=== PATIENT | female | born 1945 | race Caucasian/White ===

== ENCOUNTER → 2016-12-17 | Outpatient (CLI) | payer BC ==
[~2016-12-17] MED LIST: AMOX500C3 PO; ANAS1TAB6 PO; CITRACAL PO; DICL-201 PO; GABA-1218 PO; HYDR1TAB2 PO; METO25TA56 PO; SPIR25TA PO; TRAM-453 PO
--- NOTE | 2016-12-17 14:26 | MAMMOGRAPHY REPORT ---
BILATERAL DIGITAL SCREENING MAMMOGRAM WITH CAD: 12/17/2016 CLINICAL HISTORY: Routine screening. Patient has no complaints. TECHNIQUE: Bilateral CC and MLO views were obtained. Current study was also evaluated with a Comput er Aided Detection (CAD) system. COMPARISON: Comparison is made to exams dated: 12/12/2015 mammogram, 12/07/2014 mammogram, 05/17/2014 m ammogram, 05/17/2014 stereotactic biopsy, 05/04/2014 mammogram, and 10/26/2013 mammogram - [facility]. BREAST COMPOSITION: There are scattered areas of fibroglandular density in both breasts. FINDINGS: There is a possible cluster of linear microcalcifications in the 5:00 to 6:00 posterior r ight breast, for which additional spot magnification views are recommended. There are stable post biopsy changes in the middle one third of the right breast, with 2 metallic bi opsy markers in place. Other scattered and grouped microcalcifications bilaterally are stable darren red to prior exams. No focal area of architectural distortion or suspicious mass is identified. IMPRESSION: ACR BI-RADS CATEGORY 0: INCOMPLETE EVALUATION: NEED ADDITIONAL IMAGING EVALUATION The possible cluster of linear microcalcifications in the right breast needs additional evaluation. The patient will be called to schedule an appointment. Approximately 10% of breast cancers are not detected with mammography. A negative mammographic repor t should not delay biopsy if a clinically suggestive mass is present. Dana Tee M.D. ay/:12/17/2016 13:47:38 Deposition Reporter: Eun Barba M, [facility] letter sent: Addl Imaging 0 BI-RADS Code: ACR BI-RADS Category 0: Incomplete Evaluation: Need Additional Imaging Evaluation
== END | disposition home or self-care (01) ==
LOC: C.MAMM 09:34
PROVIDERS: ATTEND Family Medicine
DX: Z12.31 Encounter for screening mammogram for malignant neoplasm of breast (principal)

== ENCOUNTER → 2016-12-26 | Outpatient (CLI) | payer BC ==
--- NOTE | 2016-12-26 14:54 | MAMMOGRAPHY REPORT ---
UNILATERAL RIGHT DIGITAL DIAGNOSTIC MAMMOGRAM: 12/26/2016 CLINICAL HISTORY: Callback from screening mammogram for right breast calcifications. TECHNIQUE: Spot magnification right cc and ML views were obtained. COMPARISON: Comparison is made to exams dated: 12/17/2016 mammogram, 12/12/2015 mammogram, 12/07/2014 ma mmogram, 05/17/2014 mammogram, 05/17/2014 stereotactic biopsy, and 05/04/2014 mammogram - [facility]. BREAST COMPOSITION: There are scattered areas of fibroglandular density in the right breast. FINDINGS: Spot magnification views of the right breast demonstrate grouped calcifications which are in a linear distribution in the lower inner quadrant, measuring approximately 3 cm in extent. Give n that the calcifications are new and given the linear distribution, the calcifications are suspicio us for DCIS and stereotactic biopsy is recommended for further evaluation. 2 biopsy marker clips are again noted within the right breast from prior benign stereotactic biopsie s. Other grouped grouped calcifications seen within the right breast more medially are stable datin g back to at least the 2012 and 2011 exams. IMPRESSION: ACR BI-RADS CATEGORY 4: SUSPICIOUS New grouped calcifications in a linear distribution in the right lower inner quadrant. The calcific ations are suspicious and stereotactic biopsy is recommended for further evaluation. A phone call was made to the physician's office to confirm faxed results were received. The patient has been verbally notified of the results. The patient tentatively scheduled the biopsy before gold ving the department. Approximately 10% of breast cancers are not detected with mammography. A negative mammographic repor t should not delay biopsy if a clinically suggestive mass is present. Serena Guzman M.D. ah/:12/26/2016 08:44:57 Systems Protection Technician: Patti Arvizu, [facility] letter sent: Abnormal 4/5 BI-RADS Code: ACR BI-RADS Category 4: Suspicious
== END ==
LOC: C.MAMM 08:05
PROVIDERS: ATTEND Family Medicine
DX: R92.0 Mammographic microcalcification found on diagnostic imaging of breast (principal)

== ENCOUNTER → 2017-01-03 | Outpatient (CLI) | payer BC ==
--- NOTE | 2017-01-03 13:18 | Discharge Instructions ---
Discharge Instructions Procedure Procedure Date: January 03, 2017. Reason for visit: Right Calcifications. Discharge Discharge Date: January 03, 2017. Discharge Diagnosis: status post breast biopsy Instructions Activity Recommendations: Additional Limitations (see below) Return to School/Work: no limitations Recommended Home Diet: No Limitations Provider Instructions: ACTIVITY RECOMMENDATIONS: * No lifting, pushing, pulling or exercising the affected side for three days. RETURN TO SCHOOL/WORK: * You may return to work/school after the procedure, but do not perform any strenuous activities for 24 to 48 hours. MEDICATIONS: * Tylenol (two 325 mg) every four to six hours if needed for mild pain (if not allergic to Tylenol). DIET: * Resume previous diet. SPECIAL CARE INSTRUCTIONS: * Keep biopsy site dry for 24 hours. May shower after 24 hours, but do not soak (bathe) incision. * May remove Tegaderm (plastic patch) tomorrow AFTER showering. * Leave the steri-strips on for one week. Allow the steri-strips to fall off by themselves. If not off after one week, you may remove them. You may place a Bandaid crosswise over the strips, if desired. * Apply ice 10 minutes on and 10 minutes off as needed. * Wear a bra at bedtime to sleep more comfortably for 2-3 days. * Your referring physician should have the results after approximately 5 to 7 business days. * Call for unusual bleeding, fever, drainage, etc or if you have any questions call during normal business hours or after hours call Dr Guzman, [phone]. FOLLOW UP VISIT: Follow-up with Referring Physician as scheduled. Allergies Coded Allergies: Sulfa Drugs (Verified Allergy, Severe, COLD CHILLS PASS OUT VOMITING, ) Sulfamethoxazole (Verified Allergy, Severe, _, 09/16/09) Trimethoprim (Verified Allergy, Severe, _, 09/16/09) [place] Recommendations: Call your doctor if: * Temperature above 101 degrees * Pain not relieved by pain medicine ordered * There is increased drainage or redness from any incision * You have any unanswered questions or concerns. Your Doctors Instructions noted above were prepared by provider Serena Guzman. Patient Signature Section: Patient Instructions Signature Page Cammy Castanon Patient (or Guardian) Signature/Date: I have read and understand the instructions given to me by my caregivers. Caregiver/RN/Doctor Signature/Date: The above-named patient and/or guardian has received patient instructions on this date. + Original Patient Signature Page (only) stays with chart. Please make copy for patient.
--- NOTE | 2017-01-03 14:04 | MAMMOGRAPHY REPORT ---
THIS REPORT HAS BEEN AMENDED. AMENDMENT: 01/09/2017 Serena Guzman M.D. The pathology from right breast stereotactic biopsy was reviewed on 01/09/2017. The pathology shows D CIS grade 3, which is concordant with the imaging findings. Recommend surgical consultation for furt her evaluation. Additionally, there is a small 8 mm cluster of punctate calcifications seen medial a nd anterior to the biopsied calcifications which is stable on spot magnification views dating back to at least the 2012 exam and is therefore likely benign; however, given the new diagnosis of DCIS, con sideration could be made for excising this cluster as well at the time of surgery. STEREOTACTIC GUIDED BIOPSY RIGHT BREAST: 01/03/2017 CLINICAL HISTORY: Indeterminate calcifications in the right lower inner quadrant. PATIENT CONSENT: The procedure, risks, benefits, and alternatives of stereotactic biopsy with clip pl acement were discussed with the patient, and verbal and written consent was obtained. A timeout was performed immediately prior to the procedure. PROCEDURE DESCRIPTION: With stereotactic guidance, aseptic technique, and lidocaine as a local anesth etic (1% lidocaine to anesthetize the skin and 1% lidocaine with epinephrine to anesthetize the deepe r tissues), the area of concern in the right lower inner quadrant was sampled multiple times with a 9 -gauge vacuum-assisted biopsy needle (Drybar). The path of approach was caudocranial. The spec imen radiograph demonstrates calcifications to be present in the samples. A metallic marker clip was placed at the biopsy site. This was confirmed on postprocedure mammograms. Direct pressure was naveen lied at the biopsy site and hemostasis was readily achieved. The patient tolerated the procedure wit hout complication. She was given wound care instructions. COMPARISON: Comparison is made to exams dated: 12/26/2016 mammogram, 12/17/2016 mammogram, 12/12/2015 zuly mogram, 12/07/2014 mammogram, 10/26/2013 mammogram, and 10/02/2012 mammogram - [facility]. IMPRESSION: STEREOTACTIC GUIDED BIOPSY Stereotactic guided biopsy of indeterminate calcifications in the right lower inner quadrant posterio rly, with clip placement. The patient will receive pathology results from her referring provider. Serena Guzman M.D. ah/:01/03/2017 13:21:02 Attending Technologist: Marge REDDY(Eun)(M), [facility] Supervisor [employer]: Patti Arvizu, [facility]
--- NOTE | 2017-01-04 12:53 | MAMMOGRAPHY REPORT ---
UNILATERAL RIGHT DIGITAL DIAGNOSTIC MAMMOGRAM: 01/03/2017 CLINICAL HISTORY: Status post right breast stereotactic biopsy. TECHNIQUE: Right CC and ML and MLO views were obtained. COMPARISON: Comparison is made to exams dated: 12/17/2016 mammogram, 12/12/2015 mammogram, 12/07/2014 ma mmogram, 05/17/2014 mammogram, 10/26/2013 mammogram, and 04/27/2013 mammogram - [facility]. BREAST COMPOSITION: There are scattered areas of fibroglandular density in the right breast. FINDINGS: A preprocedural right cc view was obtained for biopsy planning purposes. Postprocedural right CC and ML and MLO views were obtained, which shows a new biopsy marker clip at the site of the biopsied calcifications in the right lower inner quadrant posteriorly. No significant postbiopsy h ematoma is seen. IMPRESSION: POST PROCEDURE IMAGING FOR MARKER PLACEMENT New biopsy marker clip status post right breast stereotactic biopsy. Pathology results are pending. Approximately 10% of breast cancers are not detected with mammography. A negative mammographic repor t should not delay biopsy if a clinically suggestive mass is present. Serena Guzman M.D. /:01/03/2017 13:34:26 Attending Technologist: Marge MOHAN)(Anne), [facility] Sample Color Maker: Patti Arvizu, [facility] BI-RADS Code: Post Procedure Imaging For Marker Placement
== END | disposition home or self-care (01) ==
LOC: C.MAMM 12:37
PROVIDERS: ATTEND Family Medicine
DX: D05.11 Intraductal carcinoma in situ of right breast (principal)

== ENCOUNTER → 2017-04-08 | Outpatient (CLI) | payer BC ==
[~2017-04-08] MED LIST changes: -CITRACAL PO; -DICL-201 PO; -GABA-1218 PO; -HYDR1TAB2 PO; -TRAM-453 PO
== END | disposition home or self-care (01) ==
LOC: C.RDSM 08:45
PROVIDERS: ATTEND Physical Medicine & Rehabilitation Sports Medicine
DX: M25.561 Pain in right knee (principal); M17.9 Osteoarthritis of knee, unspecified

== ENCOUNTER → 2017-05-14 | Outpatient (CLI) | payer BC ==
[2017-05-14 14:57] VITALS: BP 115/74; PULSE 71; TEMP 36.6; O2SAT 95
--- NOTE | 2017-05-14 15:40 | Radiation Oncology Follow-Up ---
Radiation Oncology Follow-Up Date of Visit May 14, 2017. Reason For Visit One-month follow-up and cancer survivorship care plan Radiation Completion Date finished 04-05-2017 Diagnosis (1) Intraductal cancer of right breast Status: Resolved Stage: 0 Permanent Comment: Abnormal right breast mammogram Status post stereotactic biopsy 01/03/2017 revealing DCIS Grade 3 Estrogen receptor positive and progesterone receptor positive Status post needle localization partial mastectomy and sentinel lymph node biopsy 01/23/2017 Stage pTis pN0 Status post completion of radiation therapy 04/05/2017. She received 5130 cGy utilizing hypo-fractionation. Last Edited By: Kimberlee Kent on Apr 16, 2017 16:26 History of Present Illness Ms. Castanon is a 71-year-old female with a recent history of negative biopsies of the right breast (2012, 2013) who recently presented with a abnormal mammogram on 12/17/2016 which revealed a possible cluster of linear microcalcifications in the right breast. The patient was brought back for a unilateral right diagnostic mammogram on 12/26/2016 which revealed a new group of calcifications in a linear distribution in the right lower inner quadrant that are suspicious for malignancy. 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 The patient was referred to Dr. Sujatha Pagan who discussed treatment options including mastectomy and lumpectomy. The patient elected to undergo a right breast lumpectomy and sentinel lymph node biopsy on 01/23/2017. Pathology revealed ductal carcinoma in situ that measured at least 5 mm in the greatest dimension with a solid/comedo pattern and with comedonecrosis present as well. The margins were negative in all directions. 2 sentinel lymph nodes were excised and both were negative. The patient was seen by Dr. Krysten Zelaya from medical oncology who is recommended consideration of anti-hormonal therapy. We are now seeing the patient in consultation discussed the role of adjuvant radiation therapy. She underwent a CT simulation was found to be a candidate for hypo- fractionation. This was completed 04/05/2017. She received 5130 cGy. Interim History She's been doing well over the past month. She did have some areas of skin that had blisters. These resolved without difficulty. She now has some dryness to the skin and mild peeling. She denies any pain in the breast. She is noted no masses. She has been seen in follow-up by Dr. Pagan. She has been scheduled for mammography. She has started anastrozole. She denies side effects. Allergies Coded Allergies: Sulfa Drugs (Verified Allergy, Severe, COLD CHILLS PASS OUT VOMITING, ) Sulfamethoxazole (Verified Allergy, Severe, _, 09/16/09) Trimethoprim (Verified Allergy, Severe, _, 09/16/09) Home Medications Scheduled Amoxicillin (Amoxil), 500 MG PO DIRECTED Anastrozole (Anastrozole), 1 TAB PO DAILY Metoprolol Tartrate (Lopressor) (Lopressor), 1 TAB PO BID Spironolactone (Aldactone), 25 MG PO DAILY Review of Systems Gastrointestinal: Symptoms: WNL Oral: Symptoms: No Problems Respiratory: Symptoms: WNL Urinary: Symptoms: Nocturia Comments: nocturia times 0-2 Skin: Symptoms: No Problems Breast: Right Upper Arm Measurement: 30.4 Right Mid Arm Measurement: 26.0 Right Wrist Measurement: 16.6 Left Upper Arm Measurement: 29.8 Left Mid Arm Measurement: 25.5 Left Wrist Measurement: 17.0 Arm Dominence: Right Patient Cosmetic Evaluation: Good Staff Cosmetic Evalaluation: Good Additional Notes: She completed a distress management report and answered "no" to all questions. Physical Exam Vital Signs Date Time Temp Pulse Resp B/P (MAP) Pulse Ox O2 Delivery O2 Flow Rate FiO2 05/14/17 14:57 36.6 71 16 115/74 95 Pain: Side: Bilateral Patient Pain Scale: 0 - 10 Initial Pain Intensity: 0.0 Fatigue: None General Appearance: no apparent distress Eyes: normal inspection, EOMI ENT: normal ENT inspection, hearing grossly normal Neck: no adenopathy, thyroid normal Respiratory/Chest: lungs clear, no respiratory distress, no accessory muscle use Breast: Breast examination reveals well-healed incisions of the right breast. There are no masses or tenderness no axillary adenopathy. There is edema in the lower portion of the breast. There is dryness of the skin and resolving hyperpigmentation. Using the Lyle score cosmesis she has a good outcome. The left breast showed no masses or tenderness no axillary adenopathy. Cardiovascular: regular rate, rhythm, no gallop, no murmur Abdomen: non tender Extremities: no pedal edema Neurologic/Psychiatric: no motor/sensory deficits, alert, normal mood/affect Skin: warm/dry Assessment & Plan Plan: Continue regular follow-up with Dr. Zelaya, Dr. Pagan, and her primary care physician. She is scheduled for follow-up mammography. She continues on anastrozole. She was seen and examined by Dr. Jean. She'll continue over-the- counter moisturizers for the dryness of the skin. She was reassured the hyperpigmentation will improve. She was given instructions on light massage for the edema of the breast. Today we completed a cancer survivorship care plan. A copy of the document was given to the patient. She was given a survivorship booklet. We asked her to return to our office in 6 months. She may call if she has any questions or concerns in the interim. Assessment & Plan (Attending) ADDENDUM: I agree with note created by Kimberlee Kent PA-C. I reviewed the patient's chart and information with her. I have examined and evaluated the patient. I reviewed relevant clinical information and answered the patient's and /or family's questions. CURRENCY COUNTER Total Time In Follow-Up I spent 20 minutes speaking to the patient and performing examination. I spent 20 minutes reviewing information, preparing the survivorship document, and completing this note. Total Time (Attending) In Follow-Up I spent 15 minutes examining and counseling the patient. CURRENCY COUNTER Copy To Flavia Siegel M.D.; Sujatha Pagan MD; Krysten Zelaya MD
== END ==
LOC: C.ONC 14:51
PROVIDERS: ATTEND Physician Assistant Medical
DX: Z08 Encounter for follow-up examination after completed treatment for malignant neoplasm (principal); Z92.3 Personal history of irradiation; Z85.3 Personal history of malignant neoplasm of breast

== ENCOUNTER → 2017-07-15 | Outpatient (CLI) | payer BC ==
--- NOTE | 2017-07-15 15:19 | MAMMOGRAPHY REPORT ---
UNILATERAL RIGHT DIGITAL DIAGNOSTIC MAMMOGRAM TOMOSYNTHESIS WITH CAD: 07/15/2017 CLINICAL HISTORY: 71-year-old woman with a personal history of right breast DCIS status post lumpecto my and radiation therapy. Patient has a history of two remote stereotactic guided biopsies in the ri ght breast which yielded benign pathology results. She presents for her first follow-up in the right breast after treatment to establish new baseline. The closest margin for DCIS was reported along th e posterior margin. TECHNIQUE: Right breast CC and MLO 2-D and tomosynthesis images, several spot magnification right CC and ML views were obtained. Current study was also evaluated with a Computer Aided Detection (CAD) s EQALtem. COMPARISON: Comparison is made to exams dated: 01/03/2017 mammogram, 01/03/2017 stereotactic biopsy, mammogram, 12/17/2016 mammogram, 12/12/2015 mammogram, and 12/07/2014 mammogram - [facility]. BREAST COMPOSITION: The tissue of the right breast is heterogeneously dense, which may obscure small masses. FINDINGS: There is mild diffuse skin thickening and trabecular edema of the right breast in addition to expected architectural distortion and asymmetry at the lumpectomy site in the lower inner posterio r right breast. These findings are likely related to recent treatment. There are 2 stable metallic biopsy markers in the right breast 12:00 and 3:00 axes, from prior benign stereotactic biopsies. The re are 2 benign rim calcifications and other groupings of calcifications in the upper outer posterior and lower inner middle to posterior right breast for which additional spot magnification views were obtained. No obvious new suspicious mass, unexpected architectural distortion or asymmetry is seen. Spot magnification views of the right breast demonstrate a small 3 mm grouping of coarse heterogeneou s microcalcifications in the upper outer posterior right breast. 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 A loose grouping of faint punctate microcalcifications in the lower inner right breast were present and appears similar to the spot magnification views obtained 013 and 10/03/2011. With 5 years of stability these are also likely benign. We discussed options of tissue sampling, even the personal history of DCIS presenting as faint microcalcifications versus co ntinued close monitoring with spot magnification views. We will opt to follow both of these addition al grouping/clusters of microcalcifications at the patient's next appointment in December 2017. If there is any detectable increase in number or change in distribution, tissue sampling will be needed. No s uspicious microcalcifications are seen at or posterior to the surgical site in the approximate 6:00 p osterior right breast, only a few benign oil cysts. IMPRESSION: ACR-BI-RADS CATEGORY 3: PROBABLY BENIGN 1. There are expected posttreatment changes in the right breast from breast conservation therapy. 2. There are 2 groupings of microcalcifications in the right breast lower inner quadrant and upper o uter quadrant posteriorly that are benign in appearance and have most likely been present for approxi mately 5 years. However, given the personal history of DCIS presenting as faint calcifications, we d iscussed options of tissue sampling versus continued close monitoring with spot magnification views. We will perform repeat assessment of both the surgical site and these to other areas of calcificatio ns in December 2017, when the patient is due for bilateral annual mammography. These results and recommendations were discussed with the patient at the time of the exam. She tenta tively scheduled a follow-up appointment prior to leaving our department. Approximately 10% of breast cancers are not detected with mammography. A negative mammographic report should not delay biopsy if a clinically suggestive mass is present. Dana Tee M.D. ay/:07/15/2017 13:39:36 Ad Writer: Patti Arvizu, [facility] letter sent: Follow Up Recommended 3 BI-RADS Code: ACR-BI-RADS Category 3: Probably Benign
== END | disposition home or self-care (01) ==
LOC: C.MAMM 08:48
PROVIDERS: ATTEND Surgery
DX: Z08 Encounter for follow-up examination after completed treatment for malignant neoplasm (principal); Z85.3 Personal history of malignant neoplasm of breast; R92.0 Mammographic microcalcification found on diagnostic imaging of breast

== ENCOUNTER → 2017-12-23 | Outpatient (CLI) | payer BC ==
[~2017-12-23] MED LIST changes: -ANAS1TAB6 PO; +ANAS1TAB7 PO
--- NOTE | 2017-12-25 15:25 | MAMMOGRAPHY REPORT ---
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 Also due for annual left mammography. TECHNIQUE: Bilateral breast tomosynthesis in addition to standard 2D mammography was performed. Spot magnification CC and ML views of each breast were obtained. Current study was also evaluated with a Computer Aided Detection (CAD) system. COMPARISON: Comparison is made to exams dated: 07/15/2017 mammogram, 01/03/2017 mammogram, 01/03/2017 s tereotactic biopsy, 12/26/2016 mammogram, 12/17/2016 mammogram, and 12/12/2015 mammogram - [facility]. BREAST COMPOSITION: The tissue of the right breast is heterogeneously dense, which may obscure small masses. There are scattered areas of fibroglandular density in the left breast. FINDINGS: There is mild diffuse skin thickening and trabecular edema of the right breast, likely due to recent treatment. A linear scar marker overlies the 5:00 to 6:00 middle one third of the right br east, denoting the area of recent lumpectomy. There is expected architectural distortion at the surg ical site in the 6:00 middle one third of the right breast. There is no evidence of unexpected archi tectural distortion, obvious new mass or new microcalcifications. There are numerous benign round an d rim calcifications and 2 stable metallic biopsy marker clips in the right breast. There is a loose grouping of punctate microcalcifications in the medial, posterior right breast located approximately 12 mm distal to the nipple that are unchanged comparing to prior spot magnification views dating moon k to at least 2012 and with 5 years of stability are most likely benign. There are increasingly prominent calcifications within the left breast, many of which have a course o f probably benign appearance. However, additional spot magnification views were also obtained in the left breast. No obvious new mass, architectural distortion or asymmetry was identified in the left breast. The spot magnification views of the left breast demonstrate a few loosely grouped punctate calcificat ions in the middle one third of the breast along the posterior nipple line and a few benign coarse ca lcifications. There is currently no evidence of a suspicious grouping or cluster of calcifications i n the left breast. IMPRESSION: ACR-BI-RADS CATEGORY 3: PROBABLY BENIGN 1. Stable/expected posttreatment changes in the left breast, without definite mammographic evidence of malignancy. There is a loose grouping of punctate microcalcifications in the medial, posterior le ft breast that appears stable on prior spot magnification views dating back to 2012 and with 5 years of stability are most likely benign. 2. There are loosely grouped punctate microcalcifications and other scattered benign somewhat coarse calcifications in the left breast that are also probably benign. 3. Another close follow-up bilateral diagnostic mammogram including bilateral spot magnification vie ws are recommended to ensure longer stability of the calcifications in the medial right breast and pu nctate microcalcifications in the left breast, as well as to ensure longer stability in the right guevara ast after treatment. These results and recommendations were discussed with the patient at the time of the exam. Approximately 10% of breast cancers are not detected with mammography. A negative mammographic report should not delay biopsy if a clinically suggestive mass is present. Dana Tee M.D. ay/:12/24/2017 15:12:53 Pediatric Nephrologist: Patti Arvizu, [facility] letter sent: Follow Up Recommended 3 BI-RADS Code: ACR-BI-RADS Category 3: Probably Benign
== END | disposition home or self-care (01) ==
LOC: C.MAMM 13:57
PROVIDERS: ATTEND Family Medicine
DX: R92.0 Mammographic microcalcification found on diagnostic imaging of breast (principal); R92.1 Mammographic calcification found on diagnostic imaging of breast

== ENCOUNTER 2025-03-31 06:33 | Observation (INO) ==
--- NOTE | 2025-02-23 10:34 | PAT Medication Instructions ---
Medication Instructions Date of Service February 23, 2025 Home Medications anastrozole 1 mg tablet 1 mg PO QAM metoprolol tartrate 25 mg tablet 25 mg PO BID spironolactone 25 mg tablet 25 mg PO QAM acetaminophen 650 mg tablet,extended release 650 mg PO Q8H PRN amoxicillin 875 mg-potassium clavulanate 125 mg tablet 1 tab PO BID PRN ASK your prescriber and surgeon anastrozole 1 mg tablet 1 mg PO QAM DO NOT take the morning of surgery spironolactone 25 mg tablet 25 mg PO QAM Take morning of surgery With a small sip of water, OTHERWISE NOTHING TO EAT OR DRINK AFTER MIDNIGHT: metoprolol tartrate 25 mg tablet 25 mg PO BID acetaminophen 650 mg tablet,extended release 650 mg PO Q8H PRN(if needed) amoxicillin 875 mg-potassium clavulanate 125 mg tablet 1 tab PO BID PRN(if needed) Take evening before surgery metoprolol tartrate 25 mg tablet 25 mg PO BID acetaminophen 650 mg tablet,extended release 650 mg PO Q8H PRN(if needed) amoxicillin 875 mg-potassium clavulanate 125 mg tablet 1 tab PO BID PRN(if needed) Other Notes If you have any questions please call us at [phone] or [phone] or [phone] or [phone]
--- NOTE | 2025-03-01 15:22 | Anesthesiology Consultation ---
Date of Service March 01, 2025 Assessment & Plan (1) Encounter for pre-operative examination: Chart Review Chart Review: Acceptable Risk for Surgery (pending confirmed EKG and surgeon ordered PCP clearance ) and Patient seen in Pre Admission Testing - Awaiting confirmed EKG - Awaiting PCP clearance 03/05/25 (Dr Jarrett Sánchez) [facility] - please fax preop testing Sulfa allergy - Patient is NOT an ideal OPJ candidate (currently 23 hour obs) Per PAT appt on 03/01/25, no recent illness/disease exposures, illness related symptoms, or recent illness/disease positive tests. Will leave to surgeon's discretion if preop Covid testing needed Teaching & Discussion Pre-Anesthesia Teaching/Discussion Notes: Instructed NPO after midnight before surgery,except medications with 15 cc of water. Medication instructions provided according to the PAT guidelines. History Surgery Operation Date: 03/31/25 09:05 Proposed Procedures p Left Total Hip Arthroplasty - Glynn Mcgee MD Height/Weight Height: 5 ft Weight: 80.3 kg Allergies Allergy/AdvReac Type Severity Reaction Status Date / Time Sulfa (Sulfonamide Allergy Severe heart Verified 02/22/25 10:21 Antibiotics) problems/ passes out sulfamethoxazole Allergy Severe heart Verified 02/22/25 10:21 problems/ passes out trimethoprim Allergy Severe heart Verified 02/22/25 10:21 problems/ passes out Medications Home Medications Medication Instructions Recorded Confirmed Last Taken anastrozole 1 mg tablet 1 mg PO QAM 01/10/21 02/22/25 01/10/21 metoprolol tartrate 25 mg tablet 25 mg PO BID 01/10/21 02/22/25 01/10/21 spironolactone 25 mg tablet 25 mg PO QAM 01/10/21 02/22/25 01/10/21 acetaminophen 650 mg 650 mg PO Q8H PRN Pain 02/22/25 02/22/25 Unknown tablet,extended release amoxicillin 875 mg-potassium 1 tab PO BID PRN Other 02/22/25 02/22/25 Unknown clavulanate 125 mg tablet Past Medical History Medical History Hair loss - Chronic - on spironolactone - stable History of back problems HTN (hypertension) Hx of supraventricular tachycardia related to taking sulfa drugs, resolved with metoprolol HX: breast cancer 2017 > right > sx/radiation Sleep apnea no device Exercise / Class Metabolic Activity III < 4 Walking/Shop/Light housework (one flight of stairs - no chest pain or SOB- goes slow due to hip pain- uses cane for support in public ) Past Family History Family History Aunt Breast cancer Father Cancer Sister Diabetes Past Surgical History Surgical History H/O breast surgery 2017 Dr. Pagan breast cancer > right H/O right knee surgery H/O: hysterectomy History of back surgery lumbar area History of cholecystectomy History of colonoscopy Hx of basal cell carcinoma excision Hx of left knee surgery Hx of melanoma excision Past Anesthesia History No Hx of Anesthesia Complications and No Family Hx of Anesthesia Complications History of PONV No Hx of PONV and No Hx of Motion Sickness Social History Smoking Status: Never smoker Do You Dip or Chew Tobacco: No Hx Alcohol Use: Yes Alcohol type: wine alcohol intake frequency: holidays/special occasions only Hx Substance Use: No substance use type: does not use Review of Systems Patient denies chest pain, shortness of breath, dyspnea on exertion, reflux, cough, wheezing, palpitations. No hx of seizures, stroke, [place]. No hx of blood clots or blood transfusions Physical Exam Vital Signs VITALS BP 120/73 P 77 TEMP 98.0 SP02 95% RESP 16 Constitutional no acute distress ENMT Mouth: + small oral opening; no TMJ clicking Thyromental Distance: > or= 3.5 Finger Breadths (3.5) Mallampati Class: III Caps to side teeth and molars Neck + limited neck extension Respiratory normal respiratory effort; no respiratory distress Auscultation: lungs clear to auscultation bilaterally; no wheezes Cardiovascular Rate/Rhythm: regular rate and regular rhythm Heart Sounds: no murmur Vessels: no carotid bruit Musculoskeletal Spine: no pain with cervical ROM Extremities: extremities normal to inspection Psychiatric Orientation: alert Lab Results Anesthesia Preop Results Results Anesthesia Widget: WBC 6.34 K/ul (4.8-10.8) 03/01/25 Hgb 12.7 g/dl (12.0-16.0) 03/01/25 Hct 39.3 % (37.0-47.0) 03/01/25 Plt 162 K/uL (130-400) 03/01/25 Na 139 mmol/L (136-145) 03/01/25 K 4.7 mmol/L (3.5-5.1) 03/01/25 Cl 106 mmol/L (98-107) 03/01/25 CO2 27 mmol/L (21-32) 03/01/25 BUN 30 mg/dl (6-23) H 03/01/25 Creat 1.04 mg/dl (0.6-1.2) 03/01/25 Glucose Level 109 mg/dl (70-99(Fasting)) H 03/01/25 PT 10.1 Seconds (9.0-12.0) 03/01/25 PTT 27 Seconds (21-31) 03/01/25 INR 0.9 (0.9-1.1) 03/01/25 Urine Color Yellow 03/01/25 Urine Appearance Clear (Clear) 03/01/25 Urine pH 5.5 (4.5-7.5) 03/01/25 Urine Specific Burt 1.016 (1.000-1.030) 03/01/25 Urine Protein Negative (Negative) 03/01/25 Urine Glucose (UA) Negative (Negative) 03/01/25 Urine Ketones Negative (Negative) 03/01/25 Urine Blood Negative (Negative) 03/01/25 Urine Nitrite Negative (Negative) 03/01/25 Urine Bilirubin Negative (Negative) 03/01/25 Urine Urobilinogen Negative (Negative) 03/01/25 Urine Leukocyte Esterase Trace (Negative) H 03/01/25 Urine WBC (Auto) 0-5 /hpf (0-5) 03/01/25 Urine RBC (Auto) 0-2 /hpf (0-2) 03/01/25 Urine Hyaline Casts (Auto) 0-2 /lpf (0-2) 03/01/25 Urine Epithelial Cells (Auto) 0-2 /hpf (0-2) 03/01/25 Urine Bacteria (Auto) None Seen (None Seen) 03/01/25 Blood Type O Positive 03/01/25 Antibody Screen NEGATIVE 03/01/25 Testing Electrocardiogram Date: 03/01/25 Findings: + NSR @ (73bpm) RBBB unconfirmed Chest X-Ray Date: 03/01/25 FINDINGS: There is stable mild cardiomegaly without pulmonary vascular congestion. Lungs are mildly hyperexpanded. No consolidation or pleural effusion seen. There is mild chronic-appearing height loss at a midthoracic vertebral body. IMPRESSION: No acute findings.
--- NOTE | 2025-03-31 05:26 | History & Physical Bridge Note ---
Date of Service March 31, 2025 History & Physical Bridge Note I have examined the patient, reviewed the History & Physical and in the interval since the performance of the History & Physical I have noted the following changes of clinical significance:consent and site verified; emphasized PT/ROM to avoid instability,meds for DVT-PE, infection and LL inequality . no changes noted
[~2025-03-31 06:33] MED LIST changes: -AMOX500C3 PO; -ANAS1TAB7 PO; +LIDOCAINE 2% 2 ML VIAL/AMP(20MG/ML) INFIL ONE; -METO25TA56 PO; -SPIR25TA PO
[2025-03-31] MEDS ORDERED: BUPIVACAINE 0.5 % 5 MG/1 ML PF 10ML VIAL ONE (07:11)
[2025-03-31] MEDS: LR 500ML BOLUS, THEN 15ML/HR IV SCH (07:13)
[2025-03-31] MEDS: LR 60ML/HR IV SCH (07:13)
[2025-03-31] MEDS ORDERED: PROPOFOL IV EMULSION 10 MG/ML 100 ML VIAL IV ONE (07:33)
[2025-03-31] MEDS ORDERED: MIDAZOLAM HCL 1 MG/ML 2ML VIAL ONE (07:33)
[2025-03-31] MEDS ORDERED: ONDANSETRON INJ 2 MG/ML 2 ML VIAL IV PRN ×2 (08:11→11:41)
[2025-03-31] MEDS ORDERED: ATROPINE SULFATE 0.1 MG/ML 10ML SYR IV PRN (08:11)
[2025-03-31] MEDS: TRANEXAMIC ACID 1,000 MG **IV Pre-op IV SCH (08:47)
[2025-03-31] MEDS: ORTHO JOINT ANESTHETIC ONE (09:23)
[2025-03-31] MEDS ORDERED: ONDANSETRON INJ 2 MG/ML 2 ML VIAL ONE (09:48)
[2025-03-31] MEDS ORDERED: DEXAMETHASONE SOD INJ 4 MG/ML VIAL ONE (09:48)
[2025-03-31] MEDS ORDERED: ePHEDrine sulfate 50 MG/5 ML SYR ONE (09:52)
[2025-03-31] MEDS ORDERED: PHENYLEPHRINE 100MCG/ML 5ML SYR ONE (09:52)
[2025-03-31] MEDS: ROPIV 0.5% 246mg, Ketorolac 30mg, EPINEPHrine 0.5mg in NSS INFIL SCH (10:23)
--- NOTE | 2025-03-31 10:28 | Post Operative Brief Note ---
Immediate Post Op Note Date of Surgery March 31, 2025 Pre & Post Diagnosis Operation Date: 03/31/25 08:50 Pre-Op Diagnosis: Left Hip Osteoarthritis Post-Op Diagnosis: Left Hip Osteoarthritis I identified the patient and participated in the time-out.: Yes Procedure Operation Date: 03/31/25 08:50 Actual Procedures p Left Total Hip Arthroplasty(Left) - Glynn Mcgee MD Surgeon Glynn Mcgee MD [facility] or fellow available Estimated Blood Loss 150 Findings Consistent with Post-Op Diagnosis Severe osteoarthritis Fluids 1600 cc Complications None
--- NOTE | 2025-03-31 10:33 | Operative Report ---
Post Operative Report Pre & Post Diagnosis Operation Date: 03/31/25 08:50 Pre-Op Diagnosis: Left Hip Osteoarthritis Post-Op Diagnosis: Left Hip Osteoarthritis I identified the patient and participated in the time-out.: Yes Procedure Operation Date: 03/31/25 08:50 Actual Procedures p Left Total Hip Arthroplasty noncemented (Left) - Glynn Mcgee MD Surgeon Glynn Mcgee MD [employer] donna no resident or fellow available Estimated Blood Loss 150 Findings Consistent with Post-Op Diagnosis Severe osteoarthritis Fluids 1600 cc Specimens Bone pathology Drains None Complications None Indications Severe pain marked x-ray destruction Description of Procedure That the patient was appropriate notified site verify consent provide antibiotics for and has been given the left lower extremity was prepped and draped use routine fashion with the patient in the right lateral decubitus position. Posterior approach the hip was then carried out. Incision was made based appropriate size and BMI. Full-thickness flaps raised IT band and inside as well as gluteus alivia fascia. This was then incised and sized directly to protect the sciatic nerve. Tractors placed. The short external rotators identified and released the capsule teed the hip dislocated femoral neck resected. Anterior capsule released large osteophytes off the posterior acetabulum as were resected. Serial reaming carried up to a 50 to 50 cup impacted into appropriate position with 6.5 x 25 screw placed with excellent pu rchase. Trial liner was then seated. Her knee was irrigated with Pulsavac and Betadine prior to putting in the permanent implant. He was then flexed internally rotated serial broaching carried up to a size 4 after the canal finder was a localized lateralizing rasp was utilized. Trial reduction was carried out 8 5 was with little bit longer 5 was appropriate. Hip was stable in all planes. Hip was then dislocated everything cleaned out with irrigation Betadine soaking trial liner of the acetabulum remove the hole swiss machinist seated permanent liner seated permanent head and stem seated the hip was then reduced stable in all planes and then closed in appropriate fashion with #2 Vicryl for the capsule and the short external rotators with care taken to protect the sciatic nerve IT band and gluteus alivia fascia closed with #2 Vicryl deep fat with the #2 Vicryl superficial subcuticular layers with 2-0 Vicryl skin with hossein. Appropriate dressing applied the patient transferred recovery in satisfactory descending tolerated the procedure well. EBL was 150 cc crystalloid 1600 cc DVT prophylaxis to begin tomorrow. Summary of implants [employer] total hip system 50 acetabular shell sector cup 6.5 x 25 screw ceramic head 32 diameter +5 neck length 4 standard stem the liner of the established 32 x 50 neutral liner. Hole eliminator. Family contacted postop. I attest to the content of the Intraoperative Record and any orders documented therein. Any exceptions are noted below.
--- NOTE | 2025-03-31 10:37 | Orthopedic Progress Note ---
Date of Service March 31, 2025 Orthopedic Progress Note Underwent left total hip replacement. Tolerated well. Denies chest pain shortness of breath fever chills nausea vomiting headache. Vital signs are stable she is afebrile. Neurovascular check limited by spinal. X-ray pending. Continue care pathway. Initiate anticoagulation tomorrow.
--- NOTE | 2025-03-31 10:38 | Discharge Summary ---
Date of Service April 01, 2025 Admission HPI Per Admitting Provider Left total placement. Admission Exam Per Admitting Provider Osteoarthritis left hip. Principal Diagnosis Osteoarthritis left hip. Discharge Data Allergies Allergy/AdvReac Type Severity Reaction Status Date / Time Sulfa (Sulfonamide Allergy Severe heart Verified 03/31/25 06:40 Antibiotics) problems/ passes out sulfamethoxazole Allergy Severe heart Verified 03/31/25 06:40 problems/ passes out trimethoprim Allergy Severe heart Verified 03/31/25 06:40 problems/ passes out Procedures Performed Operation Date: 03/31/25 08:50 Actual Procedures p Left Total Hip Arthroplasty(Left) - Glynn Mcgee MD Ordered Studies Bone pathology/x-rays Hospital Course (1) History of left hip replacement: Total Time Total Time Spent Total Time Spent (In Minutes): 10 Discharge Plan Discharge Items Patient Disposition: Home - Home Health Services Reason For Visit: Left Hip Osteoarthritis Discharge Diagnosis: Status post left hip replacement Condition on Discharge: Good Activity: Per Instructions section Lifting: Wait until after follow-up appointment Bathing: Keep incision dry Sexual Activity: Wait until after follow-up appointment Exercise/Sports: Wait until after follow-up appointment Driving/Machine Use: No driving until cleared by Dr. Mcgee Weightbearing: Full weightbearing Non-emergency contact: Surgeon Call non-emergency contact if: you have any medication questions, your temperature is above 101, your wound has increased redness, your wound has increased drainage and your wound pain has increased Follow-up/Referrals: Chalo Bauman PA-C [Physician Rehabilitation Physician] - 04/15/25 3:00 pm Jarrett Sánchez DO [Primary Care Provider] - Diet: Regular Addtl Attending Provider Instructions: New Medicine: * You will likely be taking one or more of these medicines: 1. Percocet - Take, as directed, when you need it, every four to six hours to control your pain. 2. Iron Sulfate - Take 1x each day for the month after surgery to help you replace the blood lost during surgery. 3. Eliquis - Thins your blood to lessen the chance of forming a blood clot. "VERY IMPORTANT TO READ AND REVIEW" Blood Clots and Blood Thinning Medicine: * You are given Eliquis during the immediate post-operative period to lessen the risk of blood clots forming in your legs and/or lungs. It is usually given for six weeks after surgery. Pain: * The immediate post-operative period after hip replacement surgery is often quite painful. * You are given a prescription for pain medicine. You should take it, as directed, when you need it, especially before physical therapy and before going to bed. Pain that interferes with sleep is very common and can last several months. * You will likely need pain medicine for the first two to four weeks. It will not stop all of the pain. The pain will lessen and as you feel better, you may change to milder pain medicine such as Tylenol. * The most common side effects of pain medicine are nausea and constipation, so don't take more than you need. Physical Therapy: * Follow the "Hip Precautions Instructions." * In some cases, the social services at the hospital will arrange to have a therapist come to your house for the first couple of weeks to help you learn these skills. * You need to practice on your own or with the help of a family member as needed. * When you learn these skills, most of the therapy can be done on your own. Home Exercise: * You were shown a series of exercises in the hospital. Do these exercises three to four times each day including the exercises you were shown in physical therapy. Walking: * Get up and walk several times each day. For the first four weeks, try not to stand or walk for more than one hour at a time. If you do stand or walk for more than one hour, you will not hurt anything, but your leg will likely swell. * As you feel comfortable, you may change from the walker or crutches to a cane and then to independent walking. SELF CARE INSTRUCTIONS AFTER TOTAL HIP REPLACEMENT Until the incision and soft tissues around your hip have healed, there is a possibility that the hip prosthesis could dislocate. A. Observe the following precautions to prevent dislocation: 1. Don't bend your hip greater than 90 degrees. 2. Avoid crossing your legs or ankles while standing or lying. 3. Sit with your feet placed 6 inches apart. 4. When sitting, keep your knees below your hips. Sit on a firm surface, avoid deep, soft chairs and couches. Use an elevated toilet seat in the bathroom. 5. Don't bend over at the waist. Use a long handled shoehorn and a sock aid to help you put on your shoes and socks. A mounting inspector can help you brick picker objects that are too high or too low to reach. 6. Keep car riding to a minimum for at least one month after surgery. B. Your balance may be shaky for a while. Use crutches or a walker until directed by your doctor. C. Use hand rails when walking on stairs. D. Wear low heeled shoes with non-slip soles. E. Be sure that your floors are free of things that could trip you - throw rugs, electrical cords, small objects. Avoid wet and waxed floors, especially with crutches and canes. F. Try to walk several times a day with rest periods between. G. Continue with all the exercises taught to you in the hospital. Again, make walking a part of your daily routine. VERY IMPORTANT TO READ AND REVIEW A. Take Eliquis (blood thinning medication) as directed by your doctor. B. There are a few signs you need to watch for after you are home. If you notice any of the followin. Increased severe hip pain. Some pain is expected especially when you exercise. 2. Increased swelling in your leg or knee; pain or swelling of the calf muscle in either lower leg. 3. Any fluid drainage from the incision. 4. Shortness of breath or chest pain. TEDs/Elastic Stockings: * The white elastic stockings help limit swelling and prevent blood clots from forming in your legs. The more you wear them, the more they work. * Wear them for six weeks. Prevention of Infection: * Take antibiotics one hour before any dental cleaning, dental work, urological procedure, gastrointestinal procedure or any invasive surgery in order to prevent your new joint from getting infected. * You may get the antibiotics from the doctor performing the procedure or we will call in a prescription to the pharmacy of your choice. Call the office for a prescription at least 2 days prior to your appointment. Diet: * You may return to previous diet. Things to Watch For: * Drainage from the incision site that occurs more than one week after your surgery. * Severely increased leg pain or swelling. * Increased redness at the incision site. * Fever above 101 degrees Fahrenheit. * Unusual chest pain or shortness of breath. * Unusual pain or burning with urination. MEDICATIONS: * Please take your prescriptions as instructed at your pre-op appointment and/or see medication discharge instructions listed above. * If concerns develop, call your physician's office at . SPECIAL CARE INSTRUCTIONS: * Ice/Elevate as instructed. * Keep dressing clean, dry, intact. * Your surgical extremity may be discolored due to prepping agents used on the skin. A bluish-green tint is a normal variant and should not cause alarm. Call your doctor at [phone] if: * Temperature above 101 degrees * Pain not relieved by pain medicine ordered * There is increased drainage or redness from any incision * You have any unanswered questions, problems or concerns. FOLLOW UP VISIT: * If not already scheduled, please call the office at to schedule a follow-up appointment. Use your walker for ambulation ice and elevate the hip frequently to reduce pain/swelling Start your Eliquis tonight. Take it 2x per day. Pending Studies at Discharge: Yes Studies:: bone pathology Stand-Alone Forms: My [facility] [employer] Window, Smoking Cessation Medications and DC Order Prescriptions: New Eliquis 2.5 mg tablet 2.5 mg PO BID Qty: 80 0RF oxycodone-acetaminophen [Percocet] 5-325 mg tablet 2 tab PO Q6H PRN (Reason: pain) Qty: 20 0RF Rx Instructions: initial script No Action spironolactone 25 mg tablet 25 mg PO QAM metoprolol tartrate 25 mg tablet 25 mg PO BID amoxicillin-pot clavulanate [Augmentin] 875-125 mg tablet 1 tab PO BID PRN (Reason: Other) Patient Comments: prn for dental work Rx Instructions: with food acetaminophen [Tylenol Arthritis] 650 mg Tablet Extended Release 650 mg PO Q8H PRN (Reason: Pain) Admission Data Admit Date/Time: 03/31/25 10:49 Attending Provider: Glynn Mcgee Admit Provider: Glynn Mcgee Primary Care Provider: Jarrett Sánchez
--- NOTE | 2025-03-31 10:43 | Operative Report ---
Post Operative Report Pre & Post Diagnosis Operation Date: 03/31/25 08:50 Pre-Op Diagnosis: Left Hip Osteoarthritis Post-Op Diagnosis: Left Hip Osteoarthritis I identified the patient and participated in the time-out.: Yes Procedure Operation Date: 03/31/25 08:50 Actual Procedures p Left Total Hip Arthroplasty(Left) - Glynn Mcgee MD Surgeon NANCY Mcgee MD Manager Golf [facility] no resident or fellow available Estimated Blood Loss 150 Findings Consistent with Post-Op Diagnosis see operative report Specimens see operative report Drains none Complications none Disposition Accompanied Patient To Recovery: Yes Indications This 79 year old female presented to the office complaints of persisting left hip pain. She had tried conservative care measures without improvement. She elected to proceed with surgical invention after being educated about potential risks and outcomes. Preoperative imaging was obtained. Description of Procedure The patient was administered a spinal anesthetic and then taken to the operating room where she was given sedation. She was prepped and draped in the usual sterile fashion. Please see Dr. Mcgee's operative report for specifics of the procedure. I was present for the entire case from initial patient positioning through final wound closure. Assistance was provided for tissue retraction, hemostasis, trial implant placement, final implant placement, and final wound closure. The patient was taken to the recovery room in satisfactory condition. I attest to the content of the Intraoperative Record and any orders documented therein. Any exceptions are noted below.
--- NOTE | 2025-03-31 11:00 | XRay Report ---
XR pelvis 1-2V routine CLINICAL HISTORY: S/P L ARJUN COMPARISON: 02/08/2025 FINDINGS: Left hip prosthesis shows no hardware complication. There is expected soft tissue gas. Ski n hossein are present. IMPRESSION: Unremarkable postoperative exam. ACT 112: Negative or not required by law. Electronically signed by: Ayaan Rivera M.D. 03/31/2025 10:59 AM
[2025-03-31] MEDS ORDERED: METOCLOPRAMIDE HCL INJ 5 MG/ML 2 ML VIAL IV PRN (11:41)
[2025-03-31] MEDS ORDERED: HYDROmorphone INJ 0.5 MG/0.5 ML SYR IV PRN (11:41)
[2025-03-31] MEDS ORDERED: VANCOMYCIN CONSULT ACTIVE PRN (11:41)
[2025-03-31] MEDS ORDERED: ALUMINUM/MAGNESIUM SUSP 30 ML UDC PO PRN (11:41)
[2025-03-31] MEDS ORDERED: diphenhydrAMINE 50 MG/ML VIAL IV PRN (11:41)
[2025-03-31] MEDS ORDERED: MAGNESIUM HYDROXIDE SUSP 30 ML UDC PO PRN (11:41)
[2025-03-31] MEDS ORDERED: NALOXONE HCL 0.4 MG/1 ML VIAL/CARP IV PRN (11:41)
--- NOTE | 2025-03-31 11:49 | Anesthesiology Progress Note ---
Date of Service March 31, 2025 Anesthesia Post Procedure Vital Signs Vital Signs: Temp Pulse Pulse Resp BP BP Pulse Ox 03/31/25 11:20 36.2 C L 81 17 121/79 98 03/31/25 11:10 79 17 120/57 L 98 03/31/25 11:00 79 17 115/61 100 03/31/25 10:50 71 17 136/64 100 03/31/25 10:42 35.6 C L 85 17 104/57 L 99 03/31/25 06:41 37 C 70 18 173/88 H 96 O2 Del Method O2 Flow Rate 03/31/25 11:20 Room Air 03/31/25 11:10 Room Air 03/31/25 11:00 Room Air 03/31/25 10:50 Oxymask 5 03/31/25 10:42 Oxymask 5 03/31/25 06:41 Room Air Pain Intensity Left Hip: Pain Intensity: 1 Transfer of Care Handoff Completed per policy Notes Mental Status: alert / awake / arousable and participated in evaluation Patient Amnestic to Procedure: Yes Nausea / Vomiting: adequately controlled Pain: adequately controlled Airway Patency, RR, SpO2: stable & adequate BP & HR: stable & adequate Hydration State: stable & adequate Neuraxial Anesthesia: was administered and sensory block is resolving Anesthetic Complications: no major complications apparent and Pt Satisfied with anesthetic care
[2025-03-31] MEDS: SODIUM CHLORIDE 0.9% 1,000 ML IV SCH (12:44)
[2025-03-31] MEDS: KETOROLAC TROMETHAMINE 15 MG/ML VIAL IV SCH (12:55)
[2025-03-31] MEDS: VANCOMYCIN HCL 1,250 MG in SODIUM CHLORIDE 0.9% 250 ML IV ONE (12:56)
[2025-03-31] MEDS: ACETAMINOPHEN 500 MG TAB PO SCH (14:17)
[2025-03-31 14:47] VITALS: RESP 18
[2025-03-31] MEDS: ASCORBIC ACID 500 MG TAB PO SCH (16:41)
[2025-03-31] MEDS: FERROUS GLUCONATE 324 MG TAB PO SCH (16:41)
[2025-03-31] MEDS: DOCUSATE SODIUM 100 MG CAP PO SCH (19:59)
[2025-03-31] MEDS: SENNA 8.6 MG TAB PO SCH (19:59)
[2025-03-31] MEDS: METOPROLOL TARTRATE 25 MG TAB PO SCH (20:00)
[2025-04-01 04:45] LABS: Hematocrit (blood only) 34.4 % (37.0-47.0); Hemoglobin 11.6 g/dl (12.0-16.0); Immature Granulocytes # (auto) 0.03 K/uL (0.01-0.20); Immature Granulocytes % (auto) 0.3 %; Mean Corpuscular Hemoglobin 31.8 pg (25.0-34.0); Mean Corpuscular Volume 94.2 fL (80.0-100.0); Platelet Count 121 K/uL (130-400); RDW Standard Deviation 43.7 fL (36.4-46.3); Red Blood Count 3.65 M/uL (4.20-5.40); White Blood Count 10.74 K/ul (4.8-10.8)
[2025-04-01 04:56] LABS: Anion Gap 6.0 (3-11); Blood Urea Nitrogen 30.0 mg/dl (6-23); Calcium 9.1 mg/dl (8.6-10.3); Carbon Dioxide 26.0 mmol/L (21-32); Chloride 104.0 mmol/L (98-107); Creatinine Clr Calc Pharmacy 31.6 ml/min; Glucose 158.0 mg/dl (70-99(Fasting)); Potassium 4.7 mmol/L (3.5-5.1); Sodium 136.0 mmol/L (136-145)
[2025-04-01 06:56] VITALS: BP 144/65; PULSE 70; TEMP 98.1; O2SAT 98
--- NOTE | 2025-04-01 07:29 | Orthopedic Progress Note ---
Date of Service April 01, 2025 Assessment & Plan Admission and Anticipated Discharge Date Admission Date: March 31, 2025 Orthopedic Progress Note Postop day 1 status post left total replacement. Patient doing well. Denies any chest pain shortness of breath fever chills nausea vomiting headache. Vital signs are stable she is afebrile. Neurovascular check from sciatic nerve is normal. Calves nontender. Hip is located. Wound dressing change Prevena placed. Wound looks good. A.m. labs look excellent. Assessment doing well status post left total hip replacement. She is doing well. Initiate anticoagulation today. Discharged home after PT OT. Return in 1 week for [place] removal and application of pressure dressing.
[2025-04-01] MEDS: dexAMETHasone 10 MG in SYRINGE 0 ML IV SCH (07:48)
[2025-04-01] MEDS: SPIRONOLACTONE 25 MG TAB PO SCH (09:18)
[2025-04-01] MEDS: MULTIVITAMIN TAB PO SCH (09:18)
[2025-04-01] MEDS: APIXABAN 2.5 MG TAB PO SCH (09:18)
== END 2025-04-01 10:40 | disposition home health service (06) ==
LOC: 3W 06:33 → ASU 06:33